=== PATIENT | male | born 1975 | race Caucasian/White ===

== ENCOUNTER 2021-07-03 15:58 | Emergency (ER) | payer OTHER ==
[~2021-07-03] VITALS: Ht 170.2 cm; Wt 72.6 kg
[~2021-07-03 15:58] MED LIST: KEFLEX500 MG PO
[2021-07-03] MEDS ORDERED: PREDNISONE 20 M20 MG PO (18:31)
[2021-07-03] MEDS ORDERED: IVERMECTIN3 MG PO (18:31)
[2021-07-03 19:02] VITALS: BP 162/119
== END 2021-07-03 19:02 | disposition home or self-care (01) ==
LOC: M.ERS 15:58
DX: B86 Scabies (principal); I10 Essential (primary) hypertension